=== PATIENT | male | born 1985 | race Two or more races ===

== ENCOUNTER 2017-05-09 10:47 | Emergency (ER) | payer SELFPAY ==
[~2017-05-09] VITALS: Ht 180.3 cm; Wt 88.5 kg
[2017-05-09 10:52] VITALS: BP 126/78
== END 2017-05-09 11:49 | disposition home or self-care (01) ==
LOC: ER 10:50
DX: J20.9 Acute bronchitis, unspecified (principal); J45.909 Unspecified asthma, uncomplicated
CPT/HCPCS: 94644; 99285; A4606; Z7610